=== PATIENT | male | born 1985 | race Caucasian/White ===

== ENCOUNTER 2021-09-17 22:20 | Emergency (ER) | payer OTHER ==
[~2021-09-17] VITALS: Ht 177.8 cm; Wt 81.7 kg
[~2021-09-17 22:20] MED LIST: BACTRIM DS TAB1 EACH PO; NOHOMEMEDICATIONS
[2021-09-17 22:25] VITALS: BP 141/93
== END 2021-09-17 23:34 | disposition left against medical advice (07) ==
LOC: M.ERS 22:20
DX: R10.9 Unspecified abdominal pain (principal); Z53.21 Procedure and treatment not carried out due to patient leaving prior to being seen by health care provider